=== PATIENT | female | born 1990 | race Two or more races ===

== ENCOUNTER 2024-04-02 11:04 | Emergency (ER) | payer OTHER ==
[~2024-04-02] VITALS: Ht 142.2 cm; Wt 72.0 kg
[2024-04-02 11:35] VITALS: TEMP 97.9
[2024-04-02 13:40] VITALS: BP 127/68; PULSE 82; RESP 16; O2SAT 98
== END 2024-04-02 13:53 | disposition home or self-care (01) ==
LOC: EMS 11:04
DX: R60.0 Localized edema (principal); M79.661 Pain in right lower leg; M79.662 Pain in left lower leg; I10 Essential (primary) hypertension; Z85.841 Personal history of malignant neoplasm of brain
CPT/HCPCS: 93970; 99284; Z7502